=== PATIENT | male | born 1980 | race Caucasian/White ===

== ENCOUNTER → 2022-07-17 12:18 | Outpatient (CLI) | payer OTHER, SELFPAY ==
[2022-07-17 12:51] LABS: Hematocrit 42.6 % (41-53); Hemoglobin 14.7 g/dL (13.5-17.5); Mean Corpuscular HGB Conc 34.4 % (30-36); Mean Corpuscular Hemoglobin 32.2 PG (26-34); Mean Corpuscular Volume 93.7 fL (80-100); Platelet Count 226 X10^3/uL (150-400); Red Blood Cell Count 4.55 X10^6/uL (4.5-5.9); Red Cell Distribution Width 12.5 % (11.6-14.8); White Blood Cell Count 7.9 X10^3/uL (4.5-11.0)
[2022-07-17 13:18] LABS: Alanine Aminotransferase 29 IU/L (<50); Albumin 4.3 g/dL (3.5-5.0); Albumin Globulin Ratio 1.5 (1.0-2.8); Alkaline Phosphatase 48 U/L (38-126); Aspartate Aminotransferase 29 IU/L (17-59); BUN Creatinine Ratio 25.9 (6-22); Bilirubin Total 0.5 mg/dL (0.2-1.3); Blood Urea Nitrogen 21 mg/dL (9-20); Calcium 8.8 mg/dL (8.4-10.2); Carbon Dioxide 30 mmol/L (22-32); Chloride 102 mmol/L (98-107); Cholesterol 175 mg/dL (140-199); Estimated Glomerular Filt Rate > 60 mL/min (>60); Globulin 2.9 g/dL (1.7-4.1); Glucose 94 mg/dL (70-100); HDL Cholesterol 39 mg/dL (40-60); HEMOLYSIS < 15 (0-50); LDL Cholesterol Calculated 113 mg/dL (<100); Sodium 139 mmol/L (137-145); Total Protein 7.2 g/dL (6.3-8.2); Triglycerides 116 mg/dL (35-150)
[2022-07-17 13:48] LABS: TSH w/ Reflex to FT4 1.72 uIU/mL (0.47-4.68)
[2022-07-17 14:01] LABS: Appearance Urine UA CLEAR; Bilirubin Urine UA NEGATIVE (NEGATIVE); Color Urine UA YELLOW; Glucose Urine UA NEGATIVE (Negative); Ketones Urine UA NEGATIVE (NEGATIVE); Leukocyte Esterase Urine UA NEGATIVE (NEGATIVE); Nitrite Urine UA NEGATIVE (Negative); Occult Blood Urine UA NEGATIVE (Negative); Protein Urine UA NEGATIVE (Negative); Urobilinogen Urine UA 0.2 E.U./dL (0.2); pH Urine UA 6.5 (4.5-8.0)
[2022-07-17 14:08] LABS: Bacteria Urine None Seen; RBC Urine None Seen (0-5/HPF); WBC Urine None Seen (0-5/HPF)
[2022-07-17 14:09] LABS: Culture Indicated Urine Cult Not Indicated; Urine Comments Microscopic Normal
== END ==
PROVIDERS: PCP Internal Medicine; Referring Provider Internal Medicine; Visit Provider Internal Medicine
DX: E78.2 Mixed hyperlipidemia (principal); N28.89 Other specified disorders of kidney and ureter
CPT/HCPCS: 36415; 80053; 80061; 81001; 84443; 85027

== ENCOUNTER → 2022-08-08 08:45 | Outpatient (CLI) | payer OTHER, SELFPAY | PROVIDERS: PCP Internal Medicine; Referring Provider Surgery; Visit Provider Surgery | DX: L05.91 Pilonidal cyst without abscess (principal) | CPT/HCPCS: 99203; 99213 ==

== ENCOUNTER → 2022-10-11 16:39 | Outpatient (CLI) | payer OTHER, SELFPAY ==
--- NOTE | 2022-10-11 16:40 | DI.RAD.S_ITS ---
PROCEDURE: XR FINGER LT MIN 2V INDICATIONS: left thumb pain, metal shavings TECHNIQUE: AP hand, 2 views of the left thumb acquired. COMPARISON: None. FINDINGS: Bones: No fractures or dislocations. No suspicious bony lesions. Soft tissues: No radiopaque foreign body identified. IMPRESSION: No acute fracture or radiopaque foreign body identified. If symptoms persist, follow-up radiographs and/or CT may be helpful for further evaluation. Dictated by: Naveen Anderson M.D. on 10/12/2022 at 11:01 Approved by: Naveen Anderson M.D. on 10/12/2022 at 11:08
== END ==
PROVIDERS: PCP Internal Medicine; Referring Provider Internal Medicine; Visit Provider Internal Medicine
DX: M79.645 Pain in left finger(s) (principal)
CPT/HCPCS: 73140

== ENCOUNTER → 2023-02-20 10:12 | Outpatient (CLI) | payer OTHER, SELFPAY ==
[2023-02-20 11:14] LABS: Hematocrit 45.2 % (41-53); Hemoglobin 15.5 g/dL (13.5-17.5); Mean Corpuscular HGB Conc 34.3 % (30-36); Mean Corpuscular Hemoglobin 32.2 PG (26-34); Platelet Count 269 X10^3/uL (150-400); Red Blood Cell Count 4.81 X10^6/uL (4.5-5.9); Red Cell Distribution Width 12.4 % (11.6-14.8); White Blood Cell Count 9.4 X10^3/uL (4.5-11.0)
[2023-02-20 11:29] LABS: Alanine Aminotransferase 49 IU/L (<50); Albumin 4.5 g/dL (3.5-5.0); Albumin Globulin Ratio 1.5 (1.0-2.8); Alkaline Phosphatase 50 U/L (38-126); Aspartate Aminotransferase 34 IU/L (17-59); BUN Creatinine Ratio 28.7 (6-22); Bilirubin Total 0.5 mg/dL (0.2-1.3); Blood Urea Nitrogen 25 mg/dL (9-20); Calcium 10.5 mg/dL (8.4-10.2); Carbon Dioxide 29 mmol/L (22-32); Chloride 99 mmol/L (98-107); Estimated Glomerular Filt Rate > 60 mL/min (>60); Glucose 91 mg/dL (70-100); HEMOLYSIS < 15 (0-50); Potassium 4.7 mmol/L (3.4-5.1); Sodium 139 mmol/L (137-145); Total Protein 7.5 g/dL (6.3-8.2)
== END ==
PROVIDERS: PCP Internal Medicine; Referring Provider Internal Medicine; Visit Provider Internal Medicine
DX: Z90.5 Acquired absence of kidney (principal); N28.89 Other specified disorders of kidney and ureter; E78.2 Mixed hyperlipidemia
CPT/HCPCS: 36415; 80053; 85027

== ENCOUNTER 2024-03-09 13:19 | Emergency (ER) | payer OTHER, SELFPAY ==
[2024-03-09 13:24] VITALS: BP 127/78; PULSE 89; RESP 16; TEMP 36.7; O2SAT 96; BMI 26.6
--- NOTE | 2024-03-09 13:31 | DI.RAD.S_ITS ---
PROCEDURE: XR FINGER LT MIN 2V INDICATIONS: cut with a knife TECHNIQUE: AP hand, 2 views of the 2nd finger(s) acquired. COMPARISON: None. FINDINGS: Bones: No fractures or dislocations. No suspicious bony lesions. Soft tissues: Soft tissue swelling with mild soft tissue gas can be seen. No radiopaque foreign bodies are seen. IMPRESSION: Soft tissue injury, without a radiopaque foreign body. No associated bony injury is identified. Dictated by: Gildardo Vines M.D. on 03/09/2024 at 13:04 Approved by: Gildardo Vines M.D. on 03/09/2024 at 13:05
--- NOTE | 2024-03-09 14:06 | ED_ITS ---
HPI - Extremity Injury (Upper) <Mandi Mejía PA-C - Last Filed: 03/09/24 15:08> General Chief Complaint: Extremity Injury, Upper Stated Complaint: laceration/wound L finger Time Seen by Provider: 03/09/24 13:49 Source: patient Mode of arrival: Ambulatory History of Present Illness HPI narrative: Patient is a 38 old male presents to the emergency department with a laceration to left index finger. He just washed his car, the covering off of the wu latch come off, he was attempting to fix it, he pulled out his pocket knife he uses pocket knife unfortunately the pocket knife slipped and left distal aspect of the index finger. No nail bed involvement. Finger was bleeding quite a bit, direct pressure was applied. Came into the emergency department. No other further complaints. Does not know when his last tetanus was. Right-hand dominant. Related Data Previous Rx's Medication Instructions Recorded epinephrine 0.3 mg/0.3 mL 0.3 mg (0.3 mL) IM ONCE #2 ea 03/06/24 injection, auto-injector (EpiPen) Allergies Allergy/AdvReac Type Severity Reaction Status Date / Time bee venom protein (honey bee) Allergy Severe swelling Verified 03/06/24 13:53 Review of Systems <Mandi Mejía PA-C - Last Filed: 03/09/24 15:08> Review of Systems Narrative: Negative except as above Musculoskeletal Comments: Left index finger laceration Patient History <Mandi Mejía PA-C - Last Filed: 03/09/24 15:08> Medical History History of tobacco use Family history of bicuspid aortic valve History of renal cell cancer Vision disorder Sleep apnea Chicken pox Infected sebaceous cyst Umbilical hernia without obstruction or gangrene Allergy to honey bee venom Strabismus Mixed hyperlipidemia Surgical History H/O partial nephrectomy Anesthesia History of surgery (~2019) History of hernia repair (~2011) History of surgery (~2016) History of eye surgery (~2004) 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, 2 children, contractor Smoking Status: Former smoker Smoking Status: Former smoker alcohol intake frequency: a few times a week Alcohol type: hard liquor Substance Use Type: does not use Exam <Mandi Mejía PA-C - Last Filed: 03/09/24 15:08> Initial Vital Signs Initial Vital Signs: Vital Signs Temperature 98.0 F 03/09/24 13:24 Pulse Rate 89 03/09/24 13:24 Respiratory Rate 16 03/09/24 13:24 Blood Pressure 127/78 03/09/24 13:24 Pulse Oximetry 96 03/09/24 13:24 Oxygen Delivery Method Room Air 03/09/24 13:24 Reviewed Const General: cooperative, healthy appearing, comfortable, well developed, well groomed, No acute distress, No in distress and No anxious Nutritional Appearance: average body habitus Eyes General: Yes appearance normal, both eyes and all related structures Pupils: PERRL EOM: EOM intact bilaterally Skin Other: 1-1/2 cm laceration to the distal aspect of the left index finger, range of motion, pulses, cap refill are preserved. Neuro Other: General, cranial nerves, cognition, speech, gait are all preserved Extrem Other: Range of motion, strength, pulses, cap refill preserved in the upper and lower extremities. No nailbed damage. Psych Other: Appearance, mental status, speech, mood, mood, affect, attitude, thought process, thought content, judgment all intact. <Georgina Smith MD - Last Filed: 03/09/24 20:44> Initial Vital Signs Initial Vital Signs: Vital Signs Temperature 98.0 F 03/09/24 13:24 Pulse Rate 89 03/09/24 13:24 Respiratory Rate 16 03/09/24 13:24 Blood Pressure 127/78 03/09/24 13:24 Pulse Oximetry 96 03/09/24 13:24 Oxygen Delivery Method Room Air 03/09/24 13:24 Procedures <Mandi Mejía PA-C - Last Filed: 03/09/24 15:08> Laceration Repair Laceration 1: Time of procedure: 15:05 Site: other (Left index finger) Side (If applicable): left Size (cm): 1.5 Description: linear Depth: simple, single layer Local Anesthetic: lidocaine 1% Amount of anesthesia used (mL): 5 Skin layer closed with: nylon Skin layer suture size: 5-0 Number of sutures: 3 Technique: simple, interrupted Scores <Mandi Mejía PA-C - Last Filed: 03/09/24 15:08> GCS Citation: 15 Course <Mandi Mejía PA-C - Last Filed: 03/09/24 15:08> Orders Ordered: ED Orders 03/09/24 13:31 XR finger LT min 2V Stat Discontinued Medications Diphtheria/Tetanus/Acell Pertussis (Tet,Diph,Pertuss(Acell),Vac/Pf 0.5 Ml Syringe) 0.5 ml IM .ONCE ONE Stop: 03/09/24 14:16 Last Admin: 03/09/24 14:17 Dose: 0.5 ml Documented By: MEME Lidocaine HCl (Lidocaine 1% 20 Ml) 3 ml SUBCUT NOW ONE Stop: 03/09/24 14:16 Last Admin: 03/09/24 14:18 Dose: 3 ml Documented By: MEME Vital Signs Vital signs: Vital Signs - 8 hr 03/09/24 13:24 03/09/24 15:40 Temperature 98.0 F Pulse Rate 89 70 Respiratory Rate 16 14 Blood Pressure 127/78 135/94 H Pulse Oximetry 96 98 Oxygen Delivery Method Room Air Room Air Reviewed <Georgina Smith MD - Last Filed: 03/09/24 20:44> Orders Ordered: ED Orders 03/09/24 13:31 XR finger LT min 2V Stat Discontinued Medications Diphtheria/Tetanus/Acell Pertussis (Tet,Diph,Pertuss(Acell),Vac/Pf 0.5 Ml Syringe) 0.5 ml IM .ONCE ONE Stop: 03/09/24 14:16 Last Admin: 03/09/24 14:17 Dose: 0.5 ml Documented By: MEME Lidocaine HCl (Lidocaine 1% 20 Ml) 3 ml SUBCUT NOW ONE Stop: 03/09/24 14:16 Last Admin: 03/09/24 14:18 Dose: 3 ml Documented By: MEME Vital Signs Vital signs: Vital Signs - 8 hr 03/09/24 13:24 03/09/24 15:40 Temperature 98.0 F Pulse Rate 89 70 Respiratory Rate 16 14 Blood Pressure 127/78 135/94 H Pulse Oximetry 96 98 Oxygen Delivery Method Room Air Room Air MDM - Extremity Injury (Upper) <Mandi Mejía PA-C - Last Filed: 03/09/24 15:08> Imaging Data Extremity x-ray #1: Radiologist's Impression: [address] [address] XRay Report Signed Patient: Honorio Riggs MR#: [id number] : 1980 Acct:[id number] Age/Sex: 43 / M Date of Service: 03/09/24 Loc: ED Accession Number: [id number] Procedure: XR finger LT min 2V Ordering Provider: Georgina Smith MD PROCEDURE: XR FINGER LT MIN 2V INDICATIONS: cut with a knife TECHNIQUE: AP hand, 2 views of the 2nd finger(s) acquired. COMPARISON: None. FINDINGS: Bones: No fractures or dislocations. No suspicious bony lesions. Soft tissues: Soft tissue swelling with mild soft tissue gas can be seen. No radiopaque foreign bodies are seen. IMPRESSION: Soft tissue injury, without a radiopaque foreign body. No associated bony injury is identified. Dictated by: Gildardo Vines M.D. on 03/09/2024 at 13:04 Approved by: Gildardo Vines M.D. on 03/09/2024 at 13:[address] [facility] Narrative Medical decision making narrative: 43-year-old male laceration isn't distal end of left index finger. 1-1/2 cm. Laceration repair as above. Initial digital anesthesia was used, he had pretty good anesthesia up into the pad. But did not have complete anesthesia of the laceration. Had to then use a small amount of 1% lidocaine into the actual incision to achieve full anesthesia. Then was able to place 3 sutures to close the laceration. The wound was then cleaned and dressed prior to discharge and covered with a splint. Tetanus was given X-ray was negative for air foreign body or fracture Supportive therapy, ED precautions Differential diagnosis finger laceration Discharge Plan Departure Patient Disposition: Home Clinical Impression: Laceration of finger Qualifiers: Encounter type: initial encounter Finger: index finger Damage to nail status: without damage Foreign body presence: without foreign body Laterality: left Qualified Code(s): S61.211A - Laceration without foreign body of left index finger without damage to nail, initial encounter Activity Restrictions/Additional Instructions: X-rays negative for any acute abnormalities no fracture foreign body Tylenol or ibuprofen for discomfort and pain Stitches need to come out in 7-10 days Tetanus is good for 10 years He can get the stitches out in the walk-in clinic, the urgent care or if he use the emergency room department please come early in the morning it will take about 5 minutes to take her stitches out you come in the afternoon of the early evening you could sit for hours. You can shower normally, pat the area dry, covered with a Band-Aid dressing. You can use bacitracin or Neosporin as you would like. Return to the emergency department as needed. Follow up with her primary care doctor. Prescriptions: No Action epinephrine [EpiPen] 0.3 mg/0.3 mL auto-injector 0.3 mg IM ONCE Qty: 2 3RF Rx Instructions: as a single dose; may repeat once Referrals: Deshaun Mills MD [Primary Care Provider] - Stand Alone Forms: Patient Portal/API ED Sign-out <Georgina Smith MD - Last Filed: 03/09/24 20:44> Cosign ED Attending Ashleyature Attestation: I was immediately available in the department for consultation throughout this patient's visit. Georgina Smith MD
[2024-03-09] MEDS: TET,DIPH,PERTUSS(ACELL),VAC/PF 0.5 ML SYRINGE IM (14:17)
[2024-03-09] MEDS: LIDOCAINE 1% 20 ML 3 ML SUBCUT (14:18)
[2024-03-09 15:40] VITALS: BP 135/94; PULSE 70; RESP 14; O2SAT 98
== END 2024-03-09 15:41 | disposition home or self-care (01) ==
PROVIDERS: Emergency Provider Physician Assistant; PCP Internal Medicine
DX: S61.211A Laceration without foreign body of left index finger without damage to nail, initial encounter (principal); W26.0XXA Contact with knife, initial encounter; Z23 Encounter for immunization
CPT/HCPCS: 12001; 29130; 73140; 90471; 99283; 90715

== ENCOUNTER 2024-03-28 07:30 | Day surgery (SDC) | payer OTHER, SELFPAY ==
[2024-03-28 07:39] VITALS: BP 128/82; PULSE 68; RESP 18; TEMP 36.5; O2SAT 99
--- NOTE | 2024-03-28 08:36 | PM.HP.1 ---
History of Present Illness History of Present Illness Date Patient Seen: 03/28/24 Time Patient Seen: 08:36 Chief complaint: Colonoscopy Narrative: this is a healthy 43-year-old white male who presents for initial screening colonoscopy. No family history of colon cancer, Crohn's disease, ulcerative colitis. No change in bowel habits, unexplained weight loss, abdominal pain. 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, 2 children, contractor Smoking Status: Former smoker alcohol intake: current Meds Home Medications and Allergies Home Medications Medication Instructions Recorded Confirmed Type epinephrine 0.3 mg/0.3 mL 0.3 mg (0.3 mL) IM ONCE #2 ea 03/06/24 03/06/24 Rx injection, auto-injector (EpiPen) sodium,potassium,mag sulfates 17.5 See Rx Instructions PO .COMPLEX 03/24/24 Rx gram-3.13 gram-1.6 gram oral soln #354 mL (Suprep Bowel Prep Kit) Allergies Allergy/AdvReac Type Severity Reaction Status Date / Time bee venom protein (honey bee) Allergy Severe swelling Verified 03/06/24 13:53 Review of Systems Review of Systems ROS: Yes All systems reviewed with the patient and are negative except as otherwise documented Constitutional Constitutional: Reports system reviewed and no additional complaints, except as documented Eyes Eyes: Reports system reviewed and no additional complaints, except as documented ENT Ears, Nose, Mouth, and Throat: Yes system reviewed and no additional complaints, except as documented Cardiovascular Cardiovascular: Reports system reviewed and no additional complaints, except as documented Respiratory Respiratory: Reports system reviewed and no additional complaints, except as documented Gastrointestinal Gastrointestinal: Reports system reviewed and no additional complaints, except as documented Genitourinary Genitourinary: Reports system reviewed and no additional complaints, except as documented Musculoskeletal Musculoskeletal: Reports system reviewed and no additional complaints, except as documented Integumentary/Breasts Skin/Breast: Reports system reviewed and no additional complaints, except as documented Neurologic Neurologic: Reports system reviewed and no additional complaints, except as documented Psychiatric Psychiatric: Reports system reviewed and no additional complaints, except as documented Endocrine Endocrine: Reports system reviewed and no additional complaints, except as documented Hematologic/Lymphatic Hematologic/Lymphatic: Reports system reviewed and no additional complaints, except as documented Allergic/Immunologic Allergic/Immunologic: Reports system reviewed and no additional complaints, except as documented Exam Vital Signs (past 8 hours): - 03/28/24 07:39 Temperature 97.7 F Pulse Rate 68 Respiratory Rate 18 Blood Pressure 128/82 Pulse Oximetry 99 Oxygen Delivery Method Room Air Oxygen Delivery Method Room Air Const General: cooperative, healthy appearing and comfortable Nutritional Appearance: well nourished Orientation: alert, awake and oriented x3 HENMT Head: normal to inspection Ears: hearing grossly normal bilaterally Face and sinus: normal facial exam Mouth: oral mucosae normal, oropharynx normal and moist mucous membranes Eyes General: appearance normal, both eyes and all related structures Neck Neck: normal visual inspection, trachea midline and No midline deformity Chest Chest: normal inspection of the chest Resp Effort & Inspection: normal respiratory effort Cardio Rate: regular rate Rhythm: regular rhythm GI Inspection: normal to inspection Palpation: soft, No guarding and No tender Rectal Exam: visual inspection normal (see colonoscopy report) Back/Spine/Pelvis Back: normal to inspection Skin General: no rashes or lesions noted Neuro General: patient alert, patient awake and patient oriented x3 Extrem General: normal to inspection Psych Appearance: grossly normal Assessment & Plan Assessment & Plan narrative: colon screening time-out was performed. Mac was induced. Patient was placed in left lateral decubitus position. The perineum was inspected without any gross abnormality. Lubricated pediatric colonoscope was inserted and advanced to the cecum. The terminal ileum was intubated. The colonoscope was withdrawn slowly inspecting the circumference of the colon. Very small polyps may have been missed, prep quality was adequate. Retroflexed view of the rectum showed small, non prolapsed nonbleeding internal hemorrhoids. The scope was withdrawn the patient was taken to PACU in good condition. Time-Based Coding :: [TOTAL MINUTES] spent with patient and on the chart (including review of chart, obtaining history, exam, reviewing outside data, placing orders, documenting exam and treatment plan, and counseling patient) on [DATE].
--- NOTE | 2024-03-28 08:59 | PM.OP.COLON ---
Operative Date/Time/Diagnoses Date of procedure: 03/28/24 Time of procedure: 08:59 Pre-op diagnosis: Colon cancer screening Post-op diagnosis: other ( normal colon) Procedure & Clinicians Study performed: screening colonoscopy Same procedure as scheduled: Yes Indications: cancer screening, normal risk age 43 Surgeon: Nikolas Templeton Procedure Notes SCOAP/Timeout: performed Procedure in detail: time-out was performed. Mac was induced. Patient was placed in left lateral decubitus position. The perineum was inspected without any gross abnormality. Lubricated pediatric colonoscope was inserted and advanced to the cecum. The terminal ileum was intubated. The colonoscope was withdrawn slowly inspecting the circumference of the colon. Very small polyps may have been missed, prep quality was adequate. Retroflexed view of the rectum showed small, non prolapsed nonbleeding internal hemorrhoids. The scope was withdrawn the patient was taken to PACU in good condition. Scope withdrawal time: 8 Sedation minutes: 11 Specimen(s): none sent Complications: none Impression: Normal colonoscopy Post-procedure Recommendations: Colonoscopy in 10 years Plan for aftercare: follow-up with your primary care doctor Follow up: as needed Disposition: PACU
[2024-03-28 09:01] VITALS: BP 101/60; PULSE 72; RESP 12; TEMP 36.2; O2SAT 98
[2024-03-28 09:06] VITALS: BP 102/61; PULSE 66; RESP 14; O2SAT 96
[2024-03-28 09:17] VITALS: BP 110/65; PULSE 72; RESP 14; TEMP 36.2; O2SAT 98
== END 2024-03-28 09:24 | disposition home or self-care (01) ==
PROVIDERS: PCP Internal Medicine; Referring Provider Surgery; Visit Provider Surgery
PROC: 0DJD8ZZ Inspection of Lower Intestinal Tract, Via Natural or Artificial Opening Endoscopic (ICD-10-PCS; CPT 45378; principal; 2024-03-28 09:00)
DX: Z12.11 Encounter for screening for malignant neoplasm of colon (principal); K64.8 Other hemorrhoids
CPT/HCPCS: 45378; J2704

== ENCOUNTER → 2024-05-21 08:18 | Outpatient (CLI) | payer OTHER, SELFPAY ==
[2024-05-21 09:34] LABS: Cholesterol 247 mg/dL (140-199); Glucose 93 mg/dL (70-100); HDL Cholesterol 43 mg/dL (40-60); LDL Cholesterol Calculated 171 mg/dL (<100); Triglycerides 167 mg/dL (35-150)
== END ==
PROVIDERS: PCP Internal Medicine; Referring Provider Internal Medicine; Visit Provider Internal Medicine
DX: E78.2 Mixed hyperlipidemia (principal)
CPT/HCPCS: 36415; 80061; 82947